=== PATIENT | male | born 1985 | race Caucasian/White ===

== ENCOUNTER 2017-05-30 19:33 | Emergency (ER) | payer OTHER ==
[~2017-05-30] VITALS: Ht 172.7 cm; Wt 93.0 kg
[~2017-05-30 19:33] MED LIST: ADDERALL 10 MG10 MG; ADDERALL 20 MG20 M1 PO; ALPRAZOLAM ER1 MG PO; CIPRODEX OTIC7.5 ML OTIC; FLEXERIL PO; HYDROCODONE-AP1 EAC6 PO; NAPROSYN500 MG PO; NEOMYC-POLYM-DEX5 ML OTIC; NORCO 5-325 TA1 EAC1 PO; NORCO 5-325 TA1 EACH PO; PERCOCET 5-3251 EACH PO; ROBAXIN 750 MG750 M1 PO; TRAMADOL 50 MG50 MG PO; ZPAK PO
[2017-05-30] MEDS ORDERED: NOHOMEMEDICATIONS (19:40)
[2017-05-30 20:20] LABS: INFLUENZA A ANTIGEN None Detected (None Detect); INFLUENZA B ANTIGEN None Detected (None Detect)
[2017-05-30] MEDS ORDERED: ZOFRAN ODT4 MG PO (20:44)
[2017-05-30] MEDS ORDERED: TESSALON PERLE100 MG PO (20:44)
[2017-05-30] MEDS ORDERED: DOXYCYCLINE 10100 M1 PO (20:44)
[2017-05-30 20:57] VITALS: BP 132/64
== END 2017-05-30 20:58 | disposition home or self-care (01) ==
LOC: M.ERS 19:33
PROVIDERS: Emergency Medicine Emergency Medical Services
DX: J06.9 Acute upper respiratory infection, unspecified (principal); J01.90 Acute sinusitis, unspecified; Z88.0 Allergy status to penicillin; F41.9 Anxiety disorder, unspecified; F90.9 Attention-deficit hyperactivity disorder, unspecified type; Z98.890 Other specified postprocedural states

== ENCOUNTER 2017-07-24 21:34 | Emergency (ER) | payer OTHER ==
[~2017-07-24] VITALS: Ht 172.7 cm; Wt 99.8 kg
[~2017-07-24 21:34] MED LIST changes: +DOXYCYCLINE 10100 M1 PO; +NOHOMEMEDICATIONS; +TESSALON PERLE100 MG PO; +ZOFRAN ODT4 MG PO
[2017-07-24] MEDS ORDERED: XANAX1 MG PO (21:56)
[2017-07-25] MEDS ORDERED: CLEOCIN HCL150 MG PO (00:23)
[2017-07-25] MEDS ORDERED: TRAMADOL 50 MG50 MG PO (00:25)
[2017-07-25] MEDS ORDERED: HYDROCODONE-AP1 EAC6 PO (00:28)
[2017-07-25 00:32] VITALS: BP 129/90
== END 2017-07-25 00:52 | disposition home or self-care (01) ==
LOC: M.ERS 21:34
DX: R51 Headache (principal); H66.93 Otitis media, unspecified, bilateral; F41.9 Anxiety disorder, unspecified; F90.9 Attention-deficit hyperactivity disorder, unspecified type; Z88.0 Allergy status to penicillin

== ENCOUNTER 2018-05-22 13:14 | Emergency (ER) | payer OTHER ==
[~2018-05-22] VITALS: Ht 172.7 cm; Wt 95.3 kg
[~2018-05-22 13:14] MED LIST changes: +CLEOCIN HCL150 MG PO; +XANAX1 MG PO
[2018-05-22] MEDS ORDERED: CIPROFLOXIN HC2.5 M1 OTIC (13:45)
[2018-05-22] MEDS ORDERED: NORCO 5-325 TA1 EACH PO (13:45)
[2018-05-22] MEDS ORDERED: KEFLEX500 M1 PO (13:45)
[2018-05-22 13:49] VITALS: BP 152/109
== END 2018-05-22 13:50 | disposition home or self-care (01) ==
LOC: M.ERS 13:14
DX: H66.92 Otitis media, unspecified, left ear (principal); H60.92 Unspecified otitis externa, left ear; F90.9 Attention-deficit hyperactivity disorder, unspecified type; F41.9 Anxiety disorder, unspecified; Z88.0 Allergy status to penicillin

== ENCOUNTER 2019-03-29 18:28 | Emergency (ER) | payer OTHER ==
[~2019-03-29] VITALS: Ht 175.3 cm; Wt 95.3 kg
[~2019-03-29 18:28] MED LIST changes: +CIPROFLOXIN HC2.5 M1 OTIC; +KEFLEX500 M1 PO
[2019-03-29 18:32] VITALS: BP 153/98
[2019-03-29] MEDS ORDERED: IBUPROFEN 800800 M1 PO (18:51)
[2019-03-29] MEDS ORDERED: BACTRIM DS TAB1 EACH PO (18:51)
[2019-03-29] MEDS ORDERED: TRAMADOL 50 MG50 MG PO (18:51)
== END 2019-03-29 19:08 | disposition home or self-care (01) ==
LOC: M.ERS 18:28
DX: H66.91 Otitis media, unspecified, right ear (principal); F41.9 Anxiety disorder, unspecified; F90.9 Attention-deficit hyperactivity disorder, unspecified type; F17.210 Nicotine dependence, cigarettes, uncomplicated; Z88.0 Allergy status to penicillin

== ENCOUNTER 2019-04-10 12:43 | Emergency (ER) | payer OTHER ==
[~2019-04-10] VITALS: Ht 175.3 cm; Wt 95.3 kg
[~2019-04-10 12:43] MED LIST changes: +BACTRIM DS TAB1 EACH PO; +IBUPROFEN 800800 M1 PO
[2019-04-10 13:07] LABS: URINE BILIRUBIN NEGATIVE (Negative); URINE BLOOD NEGATIVE (Negative); URINE CLARITY CLEAR; URINE COLOR YELLOW; URINE GLUCOSE-RANDOM NEGATIVE (Negative); URINE KETONES NEGATIVE (Negative); URINE LEUKOCYTES-REFLEX NEGATIVE (Negative); URINE NITRITE-REFLEX NEGATIVE (Negative); URINE PROTEIN TRACE (Negative); URINE UROBILINOGEN 0.2 E.U./dl (0.2-1.0)
[2019-04-10 13:16] LABS: ABSOLUTE LYMPHOCYTES 1.7 thou/uL (0.8-5.3); ABSOLUTE MONOCYTES 0.4 thou/uL (0.0-1.2); ABSOLUTE NEUTROPHILS 4.1 thou/uL (1.6-8.1); BASOPHILS 0.6 %; EOSINOPHILS 0.5 %; HEMATOCRIT 43.9 % (42.0-52.0); HEMOGLOBIN 15.4 gm/dL (14.0-18.0); LYMPHOCYTES 27.6 %; MCH 30.9 pg (26.0-34.0); MCHC 35.1 g/dL (28.0-37.0); MCV 88.2 fL (80.0-100.0); MONOCYTES 6.3 %; MPV 6.7 fl. (7.2-11.1); NUCLEATED RBCS 0 /100WBC; PLATELET COUNT* 412 thou/uL (150-400); RBC 4.98 mil/uL (4.50-6.00); RDW-CV 13.9 % (10.5-14.5); WBC 6.3 thou/uL (4.0-11.0)
[2019-04-10 13:27] LABS: CALCIUM 7.7 mg/dL (8.5-10.1); POTASSIUM 3.8 mmol/L (3.5-5.1)
[2019-04-10 13:31] LABS: ALBUMIN 3.3 g/dL (3.4-5.0); TOTAL BILIRUBIN 0.2 mg/dL (<0.1-1.0)
[2019-04-10] MEDS ORDERED: FLAGYL500 M1 PO (15:34)
[2019-04-10] MEDS ORDERED: PROMS25 WY RECTAL (15:34)
[2019-04-10] MEDS ORDERED: PHENERGAN 25 MG25 M1 PO (15:34)
[2019-04-10] MEDS ORDERED: CIPRO500 MG PO (15:34)
[2019-04-10] MEDS ORDERED: TRAMADOL 50 MG50 MG PO (15:43)
[2019-04-10 15:57] VITALS: BP 151/91
== END 2019-04-10 15:58 | disposition home or self-care (01) ==
LOC: M.ERS 12:43
PROVIDERS: Nurse Practitioner Family
DX: K52.9 Noninfective gastroenteritis and colitis, unspecified (principal); F41.9 Anxiety disorder, unspecified; F90.9 Attention-deficit hyperactivity disorder, unspecified type; F17.200 Nicotine dependence, unspecified, uncomplicated; Z88.0 Allergy status to penicillin

== ENCOUNTER 2019-07-06 11:37 | Emergency (ER) | payer OTHER ==
[~2019-07-06] VITALS: Ht 175.3 cm; Wt 95.3 kg
[~2019-07-06 11:37] MED LIST changes: +CIPRO500 MG PO; +FLAGYL500 M1 PO; +PHENERGAN 25 MG25 M1 PO; +PROMS25 WY RECTAL
[2019-07-06 12:28] LABS: INFLUENZA A ANTIGEN Negative (Negative); INFLUENZA B ANTIGEN Negative (Negative)
[2019-07-06] MEDS ORDERED: KEFLEX500 M1 PO (12:43)
[2019-07-06] MEDS ORDERED: TYLENOL WITH CO1 TA1 PO (12:43)
[2019-07-06] MEDS ORDERED: MEDROLDOSEPACK PO (12:43)
[2019-07-06 13:00] VITALS: BP 140/90
== END 2019-07-06 13:00 | disposition home or self-care (01) ==
LOC: M.ERS 11:37
PROVIDERS: Family Medicine
DX: J20.9 Acute bronchitis, unspecified (principal); H66.92 Otitis media, unspecified, left ear; F41.9 Anxiety disorder, unspecified; F90.9 Attention-deficit hyperactivity disorder, unspecified type; Z98.890 Other specified postprocedural states; Z88.0 Allergy status to penicillin

== ENCOUNTER 2019-10-01 04:54 | Emergency (ER) | payer OTHER ==
[~2019-10-01] VITALS: Ht 177.8 cm; Wt 95.3 kg
[~2019-10-01 04:54] MED LIST changes: +MEDROLDOSEPACK PO; +TYLENOL WITH CO1 TA1 PO
[2019-10-01] MEDS ORDERED: KLONOPIN0.5 MG PO (05:17)
[2019-10-01] MEDS ORDERED: HYDROCODON-ACE1 EAC8 PO (05:47)
[2019-10-01 06:14] VITALS: BP 138/83
== END 2019-10-01 06:15 | disposition home or self-care (01) ==
LOC: M.ERS 04:54
DX: R07.89 Other chest pain (principal); R07.81 Pleurodynia; Z88.0 Allergy status to penicillin

== ENCOUNTER 2019-10-05 20:58 | Emergency (ER) | payer OTHER ==
[~2019-10-05] VITALS: Ht 177.8 cm; Wt 95.3 kg
[~2019-10-05 20:58] MED LIST changes: +HYDROCODON-ACE1 EAC8 PO; +KLONOPIN0.5 MG PO
[2019-10-05] MEDS ORDERED: HYDROCODON-ACE1 EAC7 PO (22:25)
[2019-10-05] MEDS ORDERED: FLEXERIL PO (22:28)
[2019-10-05 22:43] VITALS: BP 132/102
== END 2019-10-05 22:44 | disposition home or self-care (01) ==
LOC: M.ERS 20:58
DX: R07.81 Pleurodynia (principal); F17.210 Nicotine dependence, cigarettes, uncomplicated; Z88.0 Allergy status to penicillin

== ENCOUNTER 2019-12-12 19:18 | Emergency (ER) | payer OTHER ==
[~2019-12-12] VITALS: Ht 172.7 cm; Wt 95.3 kg
[~2019-12-12 19:18] MED LIST changes: +HYDROCODON-ACE1 EAC7 PO
[2019-12-12 20:59] VITALS: BP 142/87
== END 2019-12-12 20:59 | disposition home or self-care (01) ==
LOC: M.ERS 19:18
DX: R05 Cough (principal); R07.89 Other chest pain; F41.9 Anxiety disorder, unspecified; Z20.828 Contact with and (suspected) exposure to other viral communicable diseases; Z88.0 Allergy status to penicillin

== ENCOUNTER 2020-10-06 21:46 | Emergency (ER) | payer OTHER ==
[~2020-10-06] VITALS: Ht 175.3 cm; Wt 97.5 kg
[2020-10-06] MEDS ORDERED: PROAIR HFA8.5 GM INH (21:53)
[2020-10-06 22:18] LABS: ABSOLUTE EOSINOPHILS 0.1 thou/uL (0.0-0.7); ABSOLUTE LYMPHOCYTES 1.5 thou/uL (0.8-5.3); ABSOLUTE MONOCYTES 0.8 thou/uL (0.0-1.2); ABSOLUTE NEUTROPHILS 5.4 thou/uL (1.6-8.1); BASOPHILS 0.5 %; HEMATOCRIT 40.7 % (42.0-52.0); HEMOGLOBIN 14.3 gm/dL (14.0-18.0); LYMPHOCYTES 19.1 %; MCH 33.2 pg (26.0-34.0); MCV 94.8 fL (80.0-100.0); MPV 7.1 fl. (7.2-11.1); NUCLEATED RBCS 0 /100WBC; PLATELET COUNT* 290 thou/uL (150-400); POLYS 69.4 %; RBC 4.29 mil/uL (4.50-6.00); RDW-CV 16.1 % (10.5-14.5); WBC 7.8 thou/uL (4.0-11.0)
[2020-10-06 22:24] LABS: CALCIUM 8.7 mg/dL (8.5-10.1); CREATININE 1.4 mg/dL (0.6-1.3); POTASSIUM 3.4 mmol/L (3.5-5.1)
[2020-10-06 22:28] LABS: ALBUMIN 3.7 g/dL (3.4-5.0); TOTAL BILIRUBIN 0.5 mg/dL (<0.1-1.0); TOTAL PROTEIN 7.1 g/dL (6.4-8.2)
[2020-10-07 00:03] LABS: URINE BILIRUBIN NEGATIVE (Negative); URINE BLOOD NEGATIVE (Negative); URINE CLARITY CLEAR; URINE COLOR YELLOW; URINE GLUCOSE-RANDOM NEGATIVE (Negative); URINE KETONES NEGATIVE (Negative); URINE LEUKOCYTES-REFLEX NEGATIVE (Negative); URINE NITRITE-REFLEX NEGATIVE (Negative); URINE PROTEIN NEGATIVE (Negative); URINE SPECIFIC GRAVITY <= 1.005 (1.005-1.030); URINE UROBILINOGEN 0.2 E.U./dl (0.2-1.0)
[2020-10-07] MEDS ORDERED: ZOFRAN ODT4 MG PO (00:23)
[2020-10-07] MEDS ORDERED: HYDROCODON-ACE1 EAC7 PO (00:23)
[2020-10-07 00:49] VITALS: BP 144/90
[2020-10-08] MEDS ORDERED: CARAFATE 1 GM TA1 G1 PO (11:16)
[2020-10-08] MEDS ORDERED: ZOFRAN ODT4 MG DISSOLVE (11:16)
[2020-10-08] MEDS ORDERED: LEVOFLOXACIN750 MG PO (11:19)
--- NOTE | 2020-10-08 13:52 | EKG ---
[place] [address] ELECTROCARDIOGRAM REPORT Name: ANA BEATTY Room: [facility]#: [id number] Admission: 10/06/20 Attend Phys: Discharge: 10/07/20 Date of : 85 Date of Service: 10/06/202210 Report #: [id number] THIS REPORT FOR: //name// [facility] ED Test Date: 2020-10-06 Test Time: 22:11:19 Pat Name: ANA BEATTY Department: Room: Gender: Principal Java Software Engineer: : 1985 Requested By: Edilma Cloud Order Number: [id number] MD: Isreal Jacobson Measurements Intervals [place] Rate: 81 P: -4 GA: 144 QRS: -23 QRSD: 82 T: 23 QT: 360 QTc: 418 Interpretive Statements Sinus rhythm Borderline left axis deviation ST elev, probable normal early repol pattern Baseline wander in lead(s) V5 No previous ECG available for comparison Electronically Signed On 10-08-2020 13:51:58 CDT by Isreal Jacobson [email or web address] <ELECTRONICALLY SIGNED> By: Isreal Jacobson MD, [facility] 10/08/20 1351 10 10 Isreal Jacobson MD, [facility] /EPI
== END 2020-10-07 00:49 | disposition home or self-care (01) ==
LOC: M.ERS 21:46
PROVIDERS: Personal Emergency Response Attendant
DX: K85.90 Acute pancreatitis without necrosis or infection, unspecified (principal); Z88.0 Allergy status to penicillin; J45.909 Unspecified asthma, uncomplicated

== ENCOUNTER 2020-10-08 08:49 | Emergency (ER) | payer OTHER ==
[~2020-10-08] VITALS: Ht 175.3 cm; Wt 97.5 kg
[~2020-10-08 08:49] MED LIST changes: +PROAIR HFA8.5 GM INH
[2020-10-08 09:22] LABS: ABSOLUTE EOSINOPHILS 0.2 thou/uL (0.0-0.7); ABSOLUTE MONOCYTES 0.8 thou/uL (0.0-1.2); ABSOLUTE NEUTROPHILS 6.1 thou/uL (1.6-8.1); BASOPHILS 0.4 %; EOSINOPHILS 1.9 %; HEMATOCRIT 41.4 % (42.0-52.0); HEMOGLOBIN 14.2 gm/dL (14.0-18.0); LYMPHOCYTES 12.4 %; MCH 32.9 pg (26.0-34.0); MCHC 34.2 g/dL (28.0-37.0); MCV 96.2 fL (80.0-100.0); MONOCYTES 9.5 %; MPV 7.1 fl. (7.2-11.1); NUCLEATED RBCS 0 /100WBC; PLATELET COUNT* 280 thou/uL (150-400); POLYS 75.8 %; RDW-CV 15.8 % (10.5-14.5); WBC 8.1 thou/uL (4.0-11.0)
[2020-10-08 09:29] LABS: CALCIUM 8.5 mg/dL (8.5-10.1); CREATININE 0.9 mg/dL (0.6-1.3); POTASSIUM 3.7 mmol/L (3.5-5.1)
[2020-10-08 09:33] LABS: ALBUMIN 3.6 g/dL (3.4-5.0); TOTAL BILIRUBIN 0.3 mg/dL (<0.1-1.0); TOTAL PROTEIN 6.9 g/dL (6.4-8.2)
[2020-10-08] MEDS ORDERED: ZOFRAN ODT4 MG DISSOLVE (11:16)
[2020-10-08] MEDS ORDERED: CARAFATE 1 GM TA1 G1 PO (11:16)
[2020-10-08] MEDS ORDERED: LEVOFLOXACIN750 MG PO (11:19)
[2020-10-08 11:53] VITALS: BP 135/92
--- NOTE | 2020-10-08 17:43 | EKG ---
[place] [address] ELECTROCARDIOGRAM REPORT Name: ANA BEATTY Room: [facility]#: [id number] Admission: 10/08/20 Attend Phys: Discharge: 10/08/20 Date of : 85 Date of Service: 10/08/20 1028 Report #: [id number] THIS REPORT FOR: //name// [facility] ED Test Date: 2020-10-08 Test Time: 10:28:29 Pat Name: ANA BEATTY Department: Room: Gender: Community Coordinator: cd : 1985 Requested By: Arik Simmons Order Number: [id number] MD: Rebel Stewart Measurements Intervals [place] Rate: 68 P: 12 IA: 142 QRS: -6 QRSD: 83 T: 19 QT: 405 QTc: 431 Interpretive Statements Sinus rhythm Compared to ECG 10/06/2020 22:11:19 ST (T wave) deviation no longer present Electronically Signed On 10-08-2020 17:43:26 CDT by Rebel Stewart [email or web address] <ELECTRONICALLY SIGNED> By: Rebel Stewart MD, FACC 10/08/20 1743 1028 1028 Rebel Stewart MD, [facility] /EPI
== END 2020-10-08 11:54 | disposition home or self-care (01) ==
LOC: M.ERS 08:49
PROVIDERS: Emergency Medicine Emergency Medical Services
DX: R10.11 Right upper quadrant pain (principal); J45.909 Unspecified asthma, uncomplicated; Z88.0 Allergy status to penicillin